=== PATIENT | female | born 1940 | race Caucasian/White ===

== ENCOUNTER 2018-10-21 07:35 | Observation (INO) | payer OTHER ==
[~2018-10-21] VITALS: Ht 157.5 cm; Wt 60.3 kg
[2018-10-21] VITALS (10 sets, daily range): BP systolic 95–167; BP diastolic 34–70
--- NOTE | ~2018-10-21 | H ---
[address] [address] HISTORY AND PHYSICAL Name: AJAY SEWELL Room: [address] Talib Rivera#: [id number] Admission: 10/21/18 Attend Phys: Mayur Johnson MD, Discharge: 10/22/18 Date of : 44 Report #: [id number] THIS REPORT FOR: //name// Please refer to the History and Physical performed in the physician's office. By: [id number] Records Staff RICK /LUKE
[2018-10-21] MEDS ORDERED: ASPIR 8181 MG PO (08:33)
[2018-10-21] MEDS ORDERED: ATIVAN1 MG PO (08:34)
[2018-10-21] MEDS ORDERED: CLARITIN10 MG PO (08:34)
[2018-10-21] MEDS ORDERED: FISH OIL 1,001000 M2 PO (08:34)
[2018-10-21] MEDS ORDERED: LIPITOR10 MG PO (08:34)
[2018-10-21] MEDS ORDERED: SUDAFED 12 HOU120 MG PO (08:35)
[2018-10-21] MEDS ORDERED: LOPRESSOR50 MG PO (08:35)
[2018-10-21 08:39] LABS: HEMATOCRIT 38.6 % (37.0-47.0); HEMOGLOBIN 13.1 gm/dL (12.0-15.0); MCH 32.5 pg (26.0-34.0); MCV 95.5 fL (80.0-100.0); MPV 7.6 fl. (7.2-11.1); RBC 4.04 mil/uL (4.20-5.00); RDW-CV 12.5 % (10.5-14.5)
[2018-10-21 08:46] LABS: APTT 24.9 Seconds (25.0-31.3); PROTIME 10.3 Seconds (9.20-11.50)
[2018-10-21 08:52] LABS: ALBUMIN 3.6 g/dL (3.4-5.0); ALKALINE PHOSPHATASE 71 U/L (46-116); ANION GAP 10 mmol/L (7-16); BUN 15 mg/dL (7-18); CALCIUM 8.7 mg/dL (8.5-10.1); CHLORIDE 96 mmol/L (98-107); CHOLESTEROL 197 mg/dL (<200); CO2 27 mmol/L (21-32); CREATININE 0.8 mg/dL (0.6-1.3); GLUCOSE 96 mg/dL (70-99); HDL CHOLESTEROL 62 mg/dL (>40); LDL CHOLESTEROL 105 mg/dL (<100); SERUM ASSESSMENT Clear; SGOT 26 U/L (15-37); SGPT 41 U/L (30-65); SODIUM 133 mmol/L (136-145); TC:HDL 3.2 Ratio (Not establshd); TOTAL BILIRUBIN 0.8 mg/dL (<0.1-1.0); TOTAL PROTEIN 8.1 g/dL (6.4-8.2); TRIGLYCERIDE 151 mg/dL (<150); VLDL 30 mg/dL (<40)
[2018-10-22] VITALS: BP 135/53
[2018-10-22 04:00] VITALS: BP 162/61
[2018-10-22 05:33] LABS: HEMATOCRIT 34.1 % (37.0-47.0); HEMOGLOBIN 11.6 gm/dL (12.0-15.0); MCH 32.9 pg (26.0-34.0); MCHC 34.2 g/dL (28.0-37.0); MCV 96.4 fL (80.0-100.0); MPV 7.5 fl. (7.2-11.1); RBC 3.54 mil/uL (4.20-5.00); RDW-CV 12.8 % (10.5-14.5); WBC 8.6 thou/uL (4.0-11.0)
[2018-10-22 05:55] LABS: ALBUMIN 2.8 g/dL (3.4-5.0); CALCIUM 8.4 mg/dL (8.5-10.1); CREATININE 0.8 mg/dL (0.6-1.3); POTASSIUM 3.8 mmol/L (3.5-5.1); TOTAL BILIRUBIN 0.8 mg/dL (<0.1-1.0); TOTAL PROTEIN 6.4 g/dL (6.4-8.2); TROPONIN-I LEVEL 0.12 ng/mL (<0.06)
--- NOTE | 2018-10-22 10:03 | EKG ---
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
--- NOTE | 2018-10-22 10:04 | EKG ---
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
--- NOTE | 2018-10-22 10:05 | EKG ---
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
[2018-10-22] MEDS ORDERED: BRILINTA90 MG PO (11:01)
[2018-10-22] MEDS ORDERED: NITROGLYCERIN0.4 MG SUBLING (11:02)
[2018-10-22 11:39] VITALS: BP 120/68
--- NOTE | 2018-10-22 14:34 | CARD ---
[address] [address] CARDIAC CATH REPORT Name: AJAY SEWELL Room: [address] Talib Rivera#: [id number] Admission: 10/21/18 Attend Phys: Mayur Johnson MD, Discharge: 10/22/18 Date of : 44 Report #: [id number] THIS REPORT FOR: //name// APPROVED REPORT Study performed: 10/21/2018 08:47:04 Patient Details Patient Status: Out-Patient Room #: The patient is a 78 year-old female Event Personnel Mayur Johnson Commissioner Of Internal Revenue, Venessa Short RN Tip Bander, Jagjit Ortega (R) Monitor, Valdez Allison FREIGHT ELEVATOR OPERATOR Scrub Procedures Performed JULI Place w/wo Plasty Single LAD; left heart catheterization left ventriculography and selective coronary arteriography Indication Unstable angina , Positive stress test Risk Factors Hypercholesterolemia, Hypertension Admission/Lab Medications/Medications given during procedure Aspirin, Platelet Aff. Inhib., Angiomax bolus and infusion Procedure Narrative The patient was brought electively to the Cardiac Catheterization Laboratory and was prepped and draped in a sterile manner. The right femoral was infiltrated with 2% Lidocaine subcutaneous anesthesia. A Kiln 6 FR sheath was inserted into the right femoral artery. Coronary angiography was performed using coronary diagnostic catheters. The right coronary system was accessed and visualized with a Diagnostic JR 4 catheter. The left coronary system was accessed and visualized with a Diagnostic JL 4 catheter. The left ventricle was accessed and visualized with a Diagnostic Straight Pigtail catheter. Left ventricular/Aortic Valve gradient assessed via catheter pullback. Left ventriculogram was performed in MALDONADO projection. Pre-demployment femoral angiogram was performed . Closure device was deployed with a Fr Angioseal STS 6Fr. The patient tolerated the procedure well and there were [place] [address] CARDIAC CATH REPORT Name: AJAY SEWELL Room: [address] M.R.#: [id number] Admission: 10/21/18 Attend Phys: Mayur Johnson MD, Discharge: 10/22/18 Date of : 44 Report #: [id number] procedure. There was no hematoma. Intraoperative Conscious Sedation Sedation start time: 9:40 Case end Time: 11:03 Fentanyl 25 mcg Versed 1 mg Fluoro Time: 26.8 minutes Dose: DAP 310097 cGycm2 3062 mGy Contrast Type and Amount: Visipaque 440 ml Coronary Angiography The patient's coronary anatomy is right dominant. Diagnostic Cath Left Main 0% narrowing LAD 90% heavily calcified eccentric ostial LAD stenosis 40% proximal LAD narrowing and 50% mid LAD narrowing Circumflex Nondominant vessel 40% mid vessel narrowing; there was a nonobstructive calcified plaque noted in the proximal circumflex Right Coronary Dominant vessel with tubular 50% proximal narrowing Left Ventriculography The left ventricle is normal in size with normal contractility. The left ventricular ejection fraction is estimated to be 65%. Left ventricular wall motion abnormalities are not present. There is no mitral insufficiency. IVUS Intravascular Ultrasound was performed on the proximal left anterior descending artery segment vessel. A Guide Catheter was used to engage the 6FR XB 3.0 100CM ostium. A Consult [employer] Flex 300cm was used. IVUS Findings NC Trek RX 2.5 X 12 Hemodynamics The aortic pressure is 150/65 mmHg with a mean of 99 mmHg. The left ventricular pressure is 169/4 mmHg with a mean of mmHg. The left ventricular end diastolic pressure is 17 mmHg. There was no gradient across the aortic valve upon pullback. [place] [address] CARDIAC CATH REPORT Name: AJAY SEWELL PHIL Room: [address] Talib Rivera#: [id number] Admission: 10/21/18 Attend Phys: Mayur Johnson MD, Discharge: 10/22/18 Date of : 44 Report #: [id number] Anticoagulation was achieved with Angiomax. Patient was preloaded with Angiomax IV 9 ml. Percutaneous coronary intervention was performed on the ostial proximal left anterior descending artery segment. The lesion stenosis prior to intervention was 90% with ANTHONY 3 flow. A 6FR XB 3.0 100CM Guide Catheter was used to engage the ostium. A IG: Prowater Flex 300cm Interventional Guidewire was used to cross the lesion. BALLOON DILATION A Balloon catheter Mini Trek RX 2.0 X 12, 2.5x12 nc trek was inserted and inflated up to 18.00atm for 13seconds. Additional Inflation: 20.00atm for 9seconds. STENT DEPLOYMENT A drug-eluting stent Xience Theresa 2.5X12mm was inserted and inflated up to 16atm for 15seconds. Final angiography reveals 0 % stenosis with ANTHONY flow. COMMENTS This was a complex procedure because of the marked calcification and eccentric nature of the severe ostial LAD stenosis. Wiring was complex with significant lesion preparation prior to stent deployment. PCI Technique Lesion Percutaneous coronary intervention was performed on the proximal left anterior descending artery segment. A 6FR XB 3.0 100CM Guide Catheter was used to engage the ostium. A IG: Prowater Flex 300cm Interventional Guidewire was used to cross the lesion. BALLOON DILATION A Balloon catheter NC Trek RX 2.5 X 12 was inserted and inflated up to 18.00atm for 9seconds. Additional Inflation: 22.00atm for 11seconds. STENT DEPLOYMENT A drug-eluting stent Xience Theresa 2.5X12mm was inserted and inflated up to 12.00atm for 9seconds. Additional Inflation: 15.00atm for 7seconds. Additional Inflation: 16.00atm for 6seconds. Conclusion #1 significant multivessel coronary artery disease characterized by the following: A 90% heavily calcified eccentric ostial LAD stenosis with 40% [place] [address] CARDIAC CATH REPORT Name: AJAY SEWELL PHIL Room: [address] Talib MLoganR.#: [id number] Admission: 10/21/18 Attend Phys: Mayur Johnson MD, Discharge: 10/22/18 Date of : 44 Report #: [id number] proximal narrowing and 50% mid vessel narrowing B 40% mid circumflex narrowing with a nonobstructive calcified plaque in the proximal circumflex C dominant right coronary artery with 50% tubular proximal narrowing #2 normal left ventricular systolic function, estimate ejection fraction being 65% #3 modest systemic systolic hypertension with modest elevation of left ventricular end-diastolic systolic pressure at rest #4 successful percutaneous coronary intervention with deployment of drug-eluting stent at the site of 90% calcified ostial LAD stenosis with 0% residual narrowing and ANTHONY-3 flow to the distal vessel Recommendations Cardiac Risk Reduction Program Aggressive Medical Therapy Medications Administered Aspirin (any) Ticagrelor Diagnostic Cath Approved by: Mayur Johnson MD Date/Time: 10/22/2018 14:33:01 <ELECTRONICALLY SIGNED> By: Mayur Johnson MD, [facility] 10/22/18 1434 1434 1434Mayur Johnson MD, FACC /INF
--- NOTE | 2018-10-23 16:09 | D ---
[address] [address] DISCHARGE SUMMARY Name: AJAY SEWELL Room: [address] Talib Rivera#: [id number] Admission: 10/21/18 Attend Phys: Mayur Johnson MD, Discharge: 10/22/18 Date of : 44 Report #: [id number] THIS REPORT FOR: //name// CC: Chandler Johnson DATE OF SERVICE: 10/22/2018 FINAL DISCHARGE DIAGNOSES: 1. Unstable angina. 2. Recently abnormal nuclear stress test. 3. Coronary artery disease. 4. Hyperlipidemia. 5. Hypertension. 6. Status post percutaneous coronary intervention with deployment of a drug-eluting stent at the site of 90% ostial left anterior descending stenosis. HOSPITAL COURSE: The patient is a very pleasant 78-year-old female with a history of risk factors for coronary disease including hyperlipidemia and hypertension. She has noted exertional chest discomfort or heaviness for some time with some improvement on medical therapy including nitrates, antiplatelet therapy and beta blockade. Stress test was performed, which demonstrated an inducible anteroapical defect, which was completely reversible. In that context, cardiac catheterization was performed on 10/21/2018, which revealed 90% heavily calcified eccentric ostial LAD stenosis with 40% mid and 50% mid to distal narrowing. There was moderate circumflex disease and 50% tubular proximal right coronary narrowing, this being a dominant vessel. Left ventricular function was normal with an ejection fraction of 60-65%. Given this data and the abnormal stress test with inducible anterior ischemia, I performed percutaneous coronary intervention of the ostial proximal LAD with plaque modification and deployment of a 2.5 x 12-mm Xience Theresa drug-eluting stent in the proximal LAD with 0% residual narrowing and ANTHONY 3 flow of the distal vessel. The patient did well post-procedurally and ambulated without difficulty. There was good hemostasis at the femoral site of catheterization. LABORATORY DATA: On 10/22/2018 revealed sodium 140, potassium 3.8, BUN 13, creatinine 0.8. Hemoglobin 11.6, white blood cell count 8600, with 325,000 platelets. Troponin sherri inconsequentially to 0.12. The [place] [address] DISCHARGE SUMMARY Name: AJAY SEWELL Room: [address] Talib Rivera#: [id number] Admission: 10/21/18 Attend Phys: Mayur Johnson MD, Discharge: 10/22/18 Date of : 44 Report #: [id number] MEDICATIONS: She was discharged home on the following medications: Aspirin 81 mg daily, atorvastatin 10 mg at bedtime, fish oil 1000 mg daily, loratadine or Claritin 10 mg daily, lorazepam 1 tablet t.i.d. as needed, metoprolol tartrate 50 mg b.i.d., pseudoephedrine 30 mg daily, ticagrelor or Brilinta 90 mg b.i.d. with 180 mg dose given periprocedurally. FOLLOWUP: The patient is scheduled to return to see me on 10/31/2018 at 1400 and subsequent followup will be with Dr. Chandler Johnson. <ELECTRONICALLY SIGNED> By: Mayur Johnson MD, FACC 10/23/18 1609 1709 1759Mayur Johnson MD, FAC /nt
== END 2018-10-22 12:43 | disposition home or self-care (01) ==
LOC: M.CL 07:35 → M.TBA 11:57 → M.TBA-CV 11:57 → M.CL 11:57 → M.TBA-CV 11:57 → M.2W 16:55
PROVIDERS: ADMIT Internal Medicine
DX: I25.110 Atherosclerotic heart disease of native coronary artery with unstable angina pectoris (principal); E78.5 Hyperlipidemia, unspecified; I10 Essential (primary) hypertension; E78.00 Pure hypercholesterolemia, unspecified; R94.39 Abnormal result of other cardiovascular function study; Z98.61 Coronary angioplasty status

== ENCOUNTER → 2019-10-01 | Outpatient (CLI) | payer OTHER ==
[~2019-10-01] MED LIST: ASPIR 8181 MG PO; ATIVAN1 MG PO; BRILINTA90 MG PO; CLARITIN10 MG PO; FISH OIL 1,001000 M2 PO; LIPITOR10 MG PO; LOPRESSOR50 MG PO; NITROGLYCERIN0.4 MG SUBLING; SUDAFED 12 HOU120 MG PO
--- NOTE | 2019-10-01 17:17 | CARDNUC ---
[place] [address] CARDIAC NUCLEAR IMAGING REPORT Name: AJAY SEWELL Room: [facility]#: [id number] Admission: 10/01/19 Attend Phys: Mila Vernon Discharge: Date of : 44 Date of Service: 10/01/19 1716 Report #: [id number] THIS REPORT FOR: cc: Chandler Johnsno MD, David A. MD Liston, Michael J. MD [facility] ~ APPROVED REPORT Imaging Protocol: Rest Tc-99m/Stress Tc-99m 1 day Study performed: 10/01/2019 09:42:27 Indication: s/p PCI. Patient Location: Out-Patient Stress Tech: Esperanza Diaz Stress Nurse: Cheyanne Bravo RN NM Tech:BONG Carrillo Ht: 5 ft 2 in Wt: 126 lbs BSA: 1.57 m2 BMI: 23.04 Medical History Medical History: CAD s/p stent, HTN, Hyperlipidemia. Medications: ASA 81 mg, Atorvastatin, Fish Oil, Metoprolol, Brilinta. Allergies: Actonel, Fosamax, Sudafed. Cardiac Risk Factors: Age, FHX of CAD, HTN, Hyperlipidemia. Previous Cardiac Procedures: PCI Pretest Chest Pain Characteristics: No chest pain Exercise History: Physically active Physical Disabilities: Knee and ankle brace worn. Meds Held (24 hrs): Metoprolol. Resting Data Rest SPECT myocardial perfusion imaging was performed in supine position 30 minutes following the intravenous injection of 9.9 mCi of Tc-99m Sestamibi. Time of rest injection: 0800 Date: 10/01/2019 The images were gated to evaluate regional wall motion and calculate left ventricular ejection fraction. Administration Route: IV Administration Site: Right Hand Exercise Stress At peak stress, the patient was injected intravenously with 34.0mCi [place] [address] CARDIAC NUCLEAR IMAGING REPORT Name: AJAY SEWELL PHIL Room: [facility]#: [id number] Admission: 10/01/19 Attend Phys: Mila Vernon Discharge: Date of : 44 Date of Service: 10/01/19 1716 Report #: [id number] of Tc-99m Sestamibi. Time of stress injection: 944 Date: 10/01/2019 Administration Route: IV Administration Site: Right Hand Gated Stress SPECT was performed 30 minutes after stress injection. The images were gated to evaluate regional wall motion and calculate left ventricular ejection fraction. Prone imaging was performed. Stress Test Details Stress Test: Exercise stress testing was performed using a Howie protocol. HR Max Heart Rate (APMHR): 143 bpm Resting HR: 96 bpm Target HR (85% APMHR): 121 bpm Max HR Achieved: 158 bpm % of APMHR: 110 Recovery HR: 109 bpm BP Resting BP: 147/75 mmHg Max BP: 214/91 mmHg Recovery BP: 152/90 mmHg ECG Resting ECG: Sinus Rhythm Stress ECG: Sinus Tachycardia ST Change: Horizontal ST depression Maximum ST Deviation: 1 mm Arrhythmia: None Recovery ECG: Sinus Rhythm Recovery ST Change: Horizontal ST depression Recovery ST Deviation: 1 mm Recovery Arrhythmia: None Clinical Reason for Termination: Completed protocol, Maximal effort, Patient Request Stress Symptoms: Mild Dyspnea. Exercise duration: 8 min 56 sec Exercise capacity: 10.16 METs Overall Exercise Capacity for Age: Superior The patient tolerated standard Howie protocol exercise without significant cardiac symptoms. [place] [address] CARDIAC NUCLEAR IMAGING REPORT Name: AJAY SEWELLAINE Room: [facility]#: [id number] Admission: 10/01/19 Attend Phys: Mila Vernon Discharge: Date of : 44 Date of Service: 10/01/19 1716 Report #: [id number] A 79 year old female presented for a Howie Protocol Nuclear Stress Test r/t s/p PCI. Treadmill well tolerated through Stage three. Recovery unremarkable. Patient was escorted by staff to Nuclear medicine for imaging. Patient was stable and stated she felt good. Stress ECG Conclusion The baseline EKG shows sinus rhythm without significant ST segment T wave abnormality. EKGs obtained during and post exercise showed sinus rhythm and sinus tachycardia with [address] segment depression diffusely that persisted 6 minutes into recovery. There were no stress-induced arrhythmias. Study Quality Study: Good Artifact: No artifact Study Data At rest, the left ventricular ejection fraction was 78%.. Post stress, the left ventricular ejection was 79%.. TID = 0.85. Perfusion Perfusion images obtained at rest and post exercise stress show uniform uptake of the radioisotope throughout the myocardium without defect. Wall Motion Normal left ventricular wall motion. Nuclear Conclusion ECG Findings: positive for ischemia Clinical Findings: negative for ischemia Nuclear Findings: negative for ischemia Exercise Capacity: normal Left Ventricular Function: normal Risk Study: low EKG findings of ST segment depression likely a false-positive in light of nuclear medicine perfusion study results. Myocardial perfusion images show no defect to suggest infarct or ischemia. Left ventricular systolic function is normal on gated studies. This is a low risk study. <Conclusion> The baseline EKG shows sinus rhythm without significant ST segment T wave abnormality. EKGs obtained during and post exercise [place] [address] CARDIAC NUCLEAR IMAGING REPORT Name: RASHAWNAJAY CARDOZA PHIL Room: [facility] ZEB Rivera#: [id number] Admission: 10/01/19 Attend Phys: Mila Vernon Discharge: Date of : 44 Date of Service: 10/01/19 1716 Report #: [id number] rhythm and sinus tachycardia with [address] segment depression diffusely that persisted 6 minutes into recovery. There were no stress-induced arrhythmias. <ELECTRONICALLY SIGNED> By: Xavi Goff MD, FACC 10/01/191715 15 15 Xavi Goff MD, FACC /INF
== END ==
LOC: M.NUC 04-21 11:58
DX: I25.10 Atherosclerotic heart disease of native coronary artery without angina pectoris (principal); Z95.5 Presence of coronary angioplasty implant and graft